=== PATIENT | female | born 1975 | race African-American/Black ===

== ENCOUNTER 2018-01-25 16:09 | Emergency (ER) | payer OTHER ==
[~2018-01-25] VITALS: Ht 157.5 cm; Wt 79.4 kg
[2018-01-25 16:43] LABS: PLATELET COUNT 296 K/uL (152-353)
== END 2018-01-25 17:35 | disposition home or self-care (01) ==
LOC: ED 16:09
DX: M19.011 Primary osteoarthritis, right shoulder (principal)
CPT/HCPCS: 85027; 85651; 99282